=== PATIENT | female | born 1985 | race Caucasian/White ===

== ENCOUNTER 2020-09-28 04:41 | Emergency (ER) | payer OTHER ==
[~2020-09-28] VITALS: Ht 154.9 cm; Wt 66.0 kg
[2020-09-28 05:45] LABS: BASOPHIL % 0.4 % (0-2); PLATELET COUNT 201 x10^3mcL (130-400); RED CELL DISTRIBUTION WIDTH 13.7 % (11.5-14.5)
[2020-09-28 05:58] LABS: CALCIUM 8.5 mg/dL (8.5-10.1); CARBON DIOXIDE 29.1 mmol/L (21-32); CHLORIDE SERUM 103 mmol/L (98-107); CREATININE SERUM 0.7 mg/dL (0.6-1.0); GFR1 > 60 mL/min; GLUCOSE SERUM 100 mg/dL (74-106); POTASSIUM SERUM 3.6 mmol/L (3.5-5.1); SODIUM SERUM 140 mmol/L (136-145)
[2020-09-28 06:07] LABS: ALBUMIN 3.9 g/dL (3.4-5.0); ALKALINE PHOSPHATASE 53 U/L (46-116); ALT/SGPT 18 U/L (14-59); AST/SGOT 13 U/L (15-37); BILIRUBIN TOTAL 0.34 mg/dL (0.20-1.00); LIPASE 77 IU/L (73-393); TOTAL PROTEIN, SERUM 7.1 g/dL (6.4-8.2)
[2020-09-28 07:02] LABS: UA SPECIFIC GRAVITY 1.025 (1.005-1.035); microscopic required? YES; urine erythrocyte 1+ (NEGATIVE)
[2020-09-28 08:36] VITALS: BP 111/67
== END 2020-09-28 08:36 | disposition home or self-care (01) ==
LOC: ED 04:41
PROVIDERS: Emergency Medicine
DX: R10.31 Right lower quadrant pain (principal); R31.29 Other microscopic hematuria; Z88.6 Allergy status to analgesic agent; Z98.890 Other specified postprocedural states; Z90.49 Acquired absence of other specified parts of digestive tract
CPT/HCPCS: J2270; J2405; J7030; Q0092; Q9967

== ENCOUNTER 2020-12-05 06:41 | Emergency (ER) | payer OTHER ==
[~2020-12-05] VITALS: Ht 162.6 cm; Wt 61.7 kg
[2020-12-05 07:40] VITALS: Ht 162.6 cm; Wt 61.7 kg
[2020-12-05 09:55] VITALS: BP 122/74
== END 2020-12-05 09:55 | disposition home or self-care (01) ==
LOC: ED 06:41
DX: R10.2 Pelvic and perineal pain (principal); R10.31 Right lower quadrant pain; Z88.6 Allergy status to analgesic agent
CPT/HCPCS: 87491; 87591